=== PATIENT | male | born 1980 | race Caucasian/White ===

== ENCOUNTER 2020-03-17 07:44 | Emergency (ER) | payer SELFPAY ==
[~2020-03-17] VITALS: Ht 172.7 cm; Wt 73.0 kg
[2020-03-17] MEDS ORDERED: ACETAMINOPHEN 325MG TABLET PO ONE (08:45)
[2020-03-17 10:25] VITALS: BP 138/87
== END 2020-03-17 10:26 | disposition home or self-care (01) ==
LOC: ER 07:44
DX: R10.33 Periumbilical pain (principal)
CPT/HCPCS: 76700; 99284